=== PATIENT | female | born 2000 | race African-American/Black ===

== ENCOUNTER 2020-09-07 10:22 | Emergency (ER) | payer SELFPAY ==
[~2020-09-07] VITALS: Ht 157.5 cm; Wt 80.6 kg
[2020-09-07 10:25] VITALS: BP 124/80
--- NOTE | 2020-09-07 10:49 | NUR ---
REPORT RECEIVED FROM RAUDEL FLORES. ASSUMING CARE AT THIS TIME. ERPA AT BEDSIDE FOR ASSESSMENT.
--- NOTE | 2020-09-07 12:12 | NUR ---
THUMB SPICA SPLINT PLACED BY CAT TENDER.
== END 2020-09-07 12:14 | disposition home or self-care (01) ==
LOC: ED 12:08
DX: S63.522A Sprain of radiocarpal joint of left wrist, initial encounter (principal); X58.XXXA Exposure to other specified factors, initial encounter; Y93.89 Activity, other specified; Y92.89 Other specified places as the place of occurrence of the external cause; Y99.8 Other external cause status
CPT/HCPCS: 29125; 99283